=== PATIENT | female | born 1950 | race Caucasian/White ===

== ENCOUNTER 2016-06-22 17:06 | Inpatient (IN) | payer MEDICARE, OTHER ==
[~2016-06-22] VITALS: Ht 162.6 cm; Wt 54.0 kg
[2016-06-22 21:00] VITALS: BP 116/75; PULSE 65; RESP 16
--- NOTE | 2016-06-22 21:00 | NUR ---
Nurses Admission Note 65 [address] old involuntary female court ordered on a 14 day hold from [facility]. Patient has been followed by [facility],became medication non-compliant resulting in paranoid beliefs and behaviors. Patient believed that people came into her apartment moved and messed up things resulting in her moving into a hotel having the same outcome. Patient received a Zyprexa 5mg PO at 1600 while in [place]. Patient arrived here oriented, pleasant, denied auditory hallucinations or feelings of self harm. Patient stated she had one previous hospitalization in [place] in October. She reported one previous attempt at self harm by not eating for a long while and "got sick". Patient will be observed q 15min. checks for safety and support.
[2016-06-22] MEDS ORDERED: Magnesium Hydroxide 10 mL Oral Concentration PO PRN (21:30)
[2016-06-22] MEDS ORDERED: Alum-Mag Hydrox-Simeth 30 mL Suspension PO PRN (21:30)
[2016-06-22] MEDS ORDERED: Benzocaine-Menthol Lozenge 2/Pkg PO PRN (21:30)
[2016-06-22] MEDS ORDERED: Zolpidem 5 mg Tablet for FEMALE or >65YO PO PRN (21:30)
[2016-06-22] MEDS ORDERED: LORazepam 0.5 mg Tablet PO PRN (21:35)
--- NOTE | 2016-06-23 05:34 | NUR ---
nursing, nights, 11-7 s- i had a bad dream. no i don't want anything. how do i use the toilet ? can i walk in here ? do i need to leave the light on to brush my teeth ? thank you. o- has appeared to sleep after [id number]. seen running in degroot after nightmare. declined medication. slept [id number] and after 0345. assessed q 15 minutes. a- interrupted sleep. responded well to staff support and reassurance. appeared to be responding to internal stimuli. no apparent physical distress. p- monitor behavior/emotional state, quality, times and amount of sleep, use and effect of medication. ponce
--- NOTE | 2016-06-23 05:45 | NUR ---
Pt arrived at 2100. Pt isolated to room much and asked how she was allowed to do basic things like toilet. She wanted to stand on toilet and squat, staff mentioned this is not safe. During night Pt ran into degroot and started yelling and trying to get out door at end of degroot. She reports this was from a bad dream. Up and down all night and appears to be responding to internal stimulus. Pt observed every 15 minutes as ordered.
--- NOTE | 2016-06-23 11:44 | NUR ---
Nursing note Pt. denies depression, hallucinations, thoughts of self harm. She is experiencing some anxiety, but would not state a number. Does not want anxiety medication at this time. Pt. pleasant and cooperative. A little quiet and stoic, but responds to questions appropriately.
[2016-06-23 17:57] VITALS: BP 153/95; PULSE 95; RESP 16
[2016-06-23 17:58] VITALS: BP 115/71; PULSE 70; RESP 18
--- NOTE | 2016-06-23 21:26 | NUR ---
Observations 0900 to 2130 Pt affect and mood was confused, flat and quiet. Pt speech and eye contact was ok. Pt showered and attended to ADL's. Pt maintained behavior control throughout the shift. Pt attended meals in the D.R. and ate 100% of breakfast, 100% of lunch and 100% of dinner. Pt ate snack. Pt mostly keeps to herself. Pt wandered the hallway and/or rests in her room. Pt was observed every 15 minutes throughout the shift as ordered.
--- NOTE | 2016-06-23 23:30 | NUR ---
Nursing Note [id number] S. I don't feel anxious right now, I am here, I feel that is what I needed to do to try to get better. I just feel really depressed-I cant seem to make it better and I just put on my pleasant face all the time to hide it. O. Patient visible on unit, interacting with peers, watching TV. Patient rates anxiety 0/10, depression 6/10, denies current SI/HI or AH/VH. A. Patient appears depressed. Denied anxiety, but asked for Ativan twice this shift. P. Monitor for response to treatment/medications. Q 15 min checks for safety. Follow plan of care. Addendum: 06/23/16 at 233 by CHERISE PRETTY RN PRNs Ativan 0.5 mg po @ 1538 patient reports I am not really anxious-just really depressed. Ativan 0.5 mg po @ 3 Tums 100 mg for heartburn @ 1749. Ambien 5mg for sleep @ 2048 Addendum: 06/23/16 at 233 by CHERISE PRETTY RN disregard note-wrong pt.
--- NOTE | 2016-06-23 23:32 | NUR ---
Nursing Note [id number] S. I am no more anxious than usual. O. Patient unable to rate anxiety. Sitting on bed staring at wall. A. Isolative at times, responding to internal stimuli. P. Monitor for response to treatment/medications. Q 15 min checks for safety. Follow plan of care.
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
--- NOTE | 2016-06-24 05:36 | NUR ---
Nursing Note Noc Pt in bed upon arrival to unit. Pt has been up and down throughout shift. Pt appearance is disheveled and appears to be anxious. Pt came out to nursing window stating" am I suppose to be doing something?" Pt also c/t state "the street lights are brighter tonight". Q15 min safety checks per protocol with a total of 6 hr plus broken sleep. WCTM sleep, safety, behavior
--- NOTE | 2016-06-24 05:41 | NUR ---
Pt out on unit on and off, interacting with others and attended group. Pt reported that the voices were telling her that the bed was electrified and buzzing and if she did not tell us it was shaking and buzzing it would get worse. Up and down all night and appears to be responding to internal stimulus. Pt observed every 15 minutes as ordered.
[2016-06-24 11:41] VITALS: BP 113/75; PULSE 70; RESP 16
--- NOTE | 2016-06-24 12:45 | NUR ---
Nursing Day Shift- S- "I do a mix of styles for Yoga. Do you do yoga?" O- Pt. was awake for breakfast. she appeared polite and pleasant. marina manager reported poor sleep and possible delusional thinking. Pt. eat well at meals then exercised in her room. A- Pt. has not made or exhibited any paranoid or delusional statements today. She does appear internally preoccupied and bright. P- Cont. to monitor and observe. Cont. BHTP
[2016-06-24] MEDS ORDERED: Pantoprazole 40 mg ER24 Tablet ONE (14:19)
[2016-06-24 14:48] LABS: BASOPHILS % (AUTO) 0.9 % (0-3); EOSINOPHILS % (AUTO) 2.3 % (0-5); Mean Corpuscular Hemoglobin 30.4 pg (27.0-35.0); Mean Corpuscular Volume 87.8 fL (81-100); NEUTROPHILS % (AUTO) 61.9 % (40-74); Platelet Count 154 bil/L (150-400)
--- NOTE | 2016-06-24 18:49 | PCM.PNPSY ---
Subjective Date of Service Jun 24, 2016 Subjective The patient reported to staff that she felt that her bed had been electrified and had asked her to turn off the outside Street lamps in a variety of other unusual requests. She reported today that her fears and been alleviated as she was informed that we have decaf coffee and that she was no longer concerned that she would have too much caffeine. She reported that she felt better about returning to her condominium and although not certain was contemplating this. She reported no side effects. Sleep: 6.5+ hours Appetite: "Good, enjoying my food." Suicidal and homicidal ideation: Denies Auditory hallucinations/Visual hallucinations: Would not clarify further but did state that they were "better" Other Psychotic Symptoms: Still appears to have some thought blocking Anxiety: Moderate 4/10 Depression: 0/10 Current Medications Current Medications Olanzapine 5 mg HS PO Last administered on 06/23/16at 20:45; Admin Dose 5 MG; Start 06/23/16 at 21:00 Mental Status Exam Vital Signs Vital Signs Date Time Temp Pulse Resp B/P Pulse Ox O2 Delivery O2 Flow Rate FiO2 06/24/16 11:41 36.3 70 16 113/75 Appearance: Unkept Attitude: Pleasant, Cooperative (generally) Behavior: No unusual behavior Affect: Well Modulated/Appropriate (some inappropriate smiling) Mood: Anxious Thought Process/Associations: Blocking Speech Production: Paucity Speech Rate: Lags/Latency Speech Articulation: Normal Thought Content: Suspicious Danger to Self/Suicidal Ideati: None Danger to Others: None Hallucinations: Auditory (Endorses), Visual (Endorses) Consciousness: Alert Orientation: Person, Place, Date, Situation Memory: Grossly Intact Estimate Intellectual Function: Average Attention/Concentration & Cogn: Grossly Intact Insight: Limited Judgement: Limited Result Diagram: 06/24/16 1432 06/24/16 1432 Mental Health Plan The patient is a 65-year-old female with a long history of schizoaffective disorder, bipolar type, as well as probable posttraumatic stress disorder by history, who presents with decompensation and apparently has not been taking medications for some time. She evidenced acute paranoia both in her home and an additional residence and was subsequently detained and held on a 14-day involuntary treatment order. The patient is agreeable to restarting olanzapine at bedtime. The patient reports that she feels that the current dose of medication is helpful and she is not experiencing any side effects and so is willing to continue. She is expressing a decreased level of paranoia about returning home. [place] AXIS I: 1. Schizoaffective disorder, bipolar type. 2. Rule out post traumatic stress disorder. AXIS II: Deferred. AXIS III: See past medical history. AXIS IV: Moderate. AXIS V: Global Assessment of Functioning 25. Treatments 1. The patient is provided a safe and secure environment and at the present time is denying suicidal or homicidal ideation and does not require additional 1 -1 staffing. 2. The patient is encouraged to participate in group and milieu therapy. 3. The treatment team will meet with the patient on a daily basis to assess symptom, side effects, and response to treatment. 4. The patient will continue olanzapine 5 mg at bedtime and was provided information regarding tardive dyskinesia and metabolic syndrome. 5. The patient was provided with an eggcrate mattress to hopefully reduce further problems with sleep. 6. Anticipated length of stay approximately 14 days. Vinnie Stuart MD Jun 24, 2016 18:49
--- NOTE | 2016-06-24 18:51 | NUR ---
Glaucoma Specialist./ c.m. S.:"Since I slept last night I feel safe here. I think I'm safe... I feel good." O.: met with pt. and MD together. Pt. is ANDRES 14 MRO as GD. She had multiple hospitalizations in the past. Her last hospitalization was in October 2015 at [place]. She is connected with mental health services. She lives alone. She denied SI/HI, denied VH, denied depression today. She felt good after starting her meds again. She admitted having AH but she said that they were "better". She rated anxiety at 4/10. She was able to complete treatment plan and goals in the best of her ability. She was in and out of her room. She showed service writer advisor and MD a line on a floor near her door. She said that it was "a border line" for her safety in her room. "Nobody can cross this border without my permission." Later she allowed service writer advisor to come in the room and to cross that "border". A.: pt. is cooperative, pleasant, confused at times, paranoid and delusional at times. P.: monitor behavior, work on reality checks, provide safety in the unit; follow care plan.
--- NOTE | 2016-06-24 18:59 | NUR ---
Observations 0700 to 1900 Pt maintained behavioral control throughout the shift. Pt is flat, disoriented, paranoid, confused. Pt is continually unsure of rules on unit and asking for permission for everything. "Can I walk down this hallway." ; "Can I drink this water." ordered and pt received egg crate mattress. Pt attended community activities and set goal to take a shower. Pt self rated mood at 5/10. Pt enjoyed watching snow fall in afternoon. Pt ate 75% of meals and was observed every 15 minutes as ordered.
--- NOTE | 2016-06-24 22:30 | NUR ---
Nursing Notes [id number] S: "I talked to my sister today, she is going to contact my brothers to let them know where I am". "I had a nightmare-that happened before when I was on this medication and am in a trauma mode, I can have these disturbing dreams". O: Patient approaching staff appropriately, initiating conversations. Patient feeling she is feeling better after talking to her sister today. Denied current depression, hallucinations, SI/HI. Reports anxiety 3-10/02. A: Patient smiling, interacting, pleasant. P: Monitor for safety and response to treatment. Follow plan of care.
--- NOTE | 2016-06-25 06:57 | NUR ---
Sleep Adequate sleep with over 8 hours. No noted distress or awakening per protocol checks.
--- NOTE | 2016-06-25 13:28 | NUR ---
Nursing Day Shift- S- "I'm not sure what I'm allowed to do in my room. I'm not sure what the rules are here. Am I in [place]? Is it ok to have coffee now? O- Pt. was standing in the hallway with a lost expression at the start of the day shift. She stated the above to staff when assistance was offered. Pt. appeared confused, but not upset or anxious. She was oriented to place and situation, then offered breakfast. She continued to appear pleasantly confused and uncertain. A- Confusion, eating well and maintaining behavioral control. P- Cont. TP.
[2016-06-25 15:38] VITALS: BP 120/60; PULSE 64; RESP 16
--- NOTE | 2016-06-25 17:52 | PCM.PNPSY ---
Subjective Date of Service Jun 25, 2016 Subjective The patient is seen by the treatment team and reports, "I feel better now that you guys are here." The patient still appears to need reassurance from staff regarding location and expectations. She still is somewhat reticent to discuss her psychiatric symptoms. The patient reports that she would feel better about returning home if someone could check to see whether everything is okay. Although her brother lives locally, she believes he is currently at [facility]. Her sister lives in [place]. She reported no side effects. Sleep: 8 + hours Appetite: "Good" Suicidal and homicidal ideation: Denies Auditory hallucinations/Visual hallucinations: Reports that olanzapine is helping but will not say with what Other Psychotic Symptoms: Still appears to have some thought blocking Anxiety/Depression: Prefers not to say other than to say, "I feel better." Current Medications Current Medications Olanzapine 5 mg HS PO Last administered on 06/24/16at 20:15; Admin Dose 5 MG; Start 06/23/16 at 21:00 Mental Status Exam Vital Signs Vital Signs Date Time Temp Pulse Resp B/P Pulse Ox O2 Delivery O2 Flow Rate FiO2 06/25/16 15:38 36.9 64 16 120/60 Appearance: Unkept Attitude: Pleasant, Cooperative (generally) Behavior: No unusual behavior Affect: Well Modulated/Appropriate (some inappropriate smiling) Mood: Anxious Thought Process/Associations: Blocking Speech Production: Paucity Speech Rate: Lags/Latency Speech Articulation: Normal Thought Content: Suspicious Danger to Self/Suicidal Ideati: None Danger to Others: None Hallucinations: Auditory (Endorses but will not clarify), Visual (Endorses but will not clarify) Consciousness: Alert Orientation: Person, Place, Date, Situation Memory: Grossly Intact Estimate Intellectual Function: Average Attention/Concentration & Cogn: Grossly Intact Insight: Limited Judgement: Limited Result Diagram: 06/24/16 1432 06/24/16 1432 Mental Health Plan The patient is a 65-year-old female with a long history of schizoaffective disorder, bipolar type, as well as probable posttraumatic stress disorder by history, who presents with decompensation and apparently has not been taking medications for some time. She evidenced acute paranoia both in her home and an additional residence and was subsequently detained and held on a 14-day involuntary treatment order. The patient is agreeable to restarting olanzapine at bedtime. The patient reports that she feels that the current dose of medication is helpful and she is not experiencing any side effects and so is willing to continue. She is expressing a decreased level of paranoia about returning home. [place] AXIS I: 1. Schizoaffective disorder, bipolar type. 2. Rule out post traumatic stress disorder. AXIS II: Deferred. AXIS III: See past medical history. AXIS IV: Moderate. AXIS V: Global Assessment of Functioning 30. Medications Olanzapine 10 mg by mouth nightly Olanzapine 5 mg by mouth twice a day when necessary psychosis Lorazepam 0.5 mg every 6 hours when necessary anxiety or agitation Zolpidem 5 mg by mouth nightly when necessary insomnia Treatments 1. The patient is provided a safe and secure environment and at the present time is denying suicidal or homicidal ideation and does not require additional 1 -1 staffing. 2. The patient is encouraged to participate in group and milieu therapy. 3. The treatment team will meet with the patient on a daily basis to assess symptom, side effects, and response to treatment. 4. The patient will continue olanzapine 5 mg at bedtime and titrate as needed although the patient is reticent to take medications if experiencing side effects. 5. The patient was provided with an eggcrate mattress to hopefully reduce further problems with sleep. 6. Anticipated length of stay approximately 14 days. Vinnie Stuart MD Jun 25, 2016 17:52
--- NOTE | 2016-06-25 18:39 | NUR ---
[facility] Day Shift Pt maintained behavioral control throughout the shift. Pt affect appears mostly flat, brighter when engaged with staff or peers. Pt spends most of the shift resting in her room, interacting with staff and peers in the dining room, and participating in unit activities. Pt is pleasant with staff and peers when active on the unit. Pt appears confused and hesitant throughout the shift, often asking staff for direction/guidance during menial tasks (this appears to alleviate as the shift progresses). Pt attended community meeting in the AM and all group activities throughout the shift. Pt attended all meals and ate approx 90-100% of all meals.
--- NOTE | 2016-06-25 22:33 | NUR ---
NURSING NOTE [id number] Orientation= x2 (person, time-- did not know place) Mood= "good" *smiles* Affect= nervous, appearing preoccupied at times Behavior= frequently pacing the unit, asked this magazine writer "can I show you my room?" and then pointed out all of the objects in her room, asked this magazine writer if this magazine writer would watch her make her bed and tell her "if it's ok?". She went on to ask many times this evening if certain things on the unit were "ok" and appeared fixated on "the rules", despite given frequent assurance that she is doing well and would be redirected if any rules were broken. Thought processes= paranoid, scattered, disorganized. A few times she appeared to be responding to internal stimuli, though pt denied AH/VH. Also denies depression or anxiety.
--- NOTE | 2016-06-26 05:03 | NUR ---
Pt spent the evening between the dining room/TV area and her room. Pt is guarded and needs constant reassurance. Pt attended wrap-up group, did not have a goal but stated that the day was good. Pt rated mood 5/10. Pt noted asleep at 2245, woke at 0015 with a nightmare stating, "I shouldn't tell you this but my best friend is going to if I tell you about her dying in my dreams unless I can remember which nickname she likes best and I know but I just can't remember and I'm scared." Pt appeared somewhat distressed but was easily calmed with walking, a drink of water, and some company for a short time. Q15 safety checks maintained as directed.
--- NOTE | 2016-06-26 06:07 | NUR ---
Nursing Noc Pt noted to be first asleep at 2245. Pt maintaining behavior control in Milieu. Participated in evening wrap up, no goal set at this time. Pt reports she had a good day. Continuing to monitor sleep times, mood, behavior, emotional state and medications by q15 minute safety checks. CP
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
--- NOTE | 2016-06-26 16:37 | NUR ---
[employer]./ c.m. S.:"I'm good... I feel confused sometimes... How do you know that I did yoga? Yoga is a yazdanism practice but stretching is an exercise. Now I don't even know how to call it..." O.: met with pt. to discuss her progress. She slept "pretty good" last night. She denied SI/HI. She denied AH/VH. She admitted being confused at times. She wanted to take a shower but she didn't know how to do that. "How will I take a shower? Just go there and that's it? Would it be ok if I wet my hair?" Pt. was talking about multiple topics at once. She couldn't follow up a conversation. She had a hard time following a direction. She became very happy to know that her aunt Cristy Murray will come on Sunday next week. She was in and out of her room wondering around. A.: pt. is cooperative, quiet, confused, scattered and looks internally preoccupied. P.: monitor behavior, monitor meds intake, follow care plan.
--- NOTE | 2016-06-26 20:27 | NUR ---
Obs Dayshift Pt spent a lot of time exercising, stretching, or walking the unit today. Pt participates, engages well w/ others, slightly latent w/ responses. Pt makes some random statements, quiet, soft spoken. Pt stated mood to be 5/10, ok eye contact, smiles and is polite w/ peers. Good ADL's, Good meals 75-100%
--- NOTE | 2016-06-26 20:57 | PROG NOTE ---
[address] [address] PROGRESS NOTE PATIENT: MARTHA BRAVO : 1950 MR#: [id number] ADMIT: 06/22/2016 JOB ID: [id number] DATE: 06/26/2016 CHIEF COMPLAINT: "I think I am doing better. I have got some anxiety but generally I am happy." This is per patient report. HISTORY OF PRESENT ILLNESS: As stated above, the patient identified that she does feel that she is making some progress. She indicated that she feels that she is mildly anxious about the upcoming plan of discharge, but states that she knows that she will be able to figure it out. She identified that she had a good talk with a family practice resident earlier today and stated that she feels that she is getting much better sleep with her current medication interventions. MENTAL STATUS EXAM: She was cooperative, polite. She maintained good eye contact throughout. She was casually dressed in scrubs. She has not taken a shower as of yet. Her speech was of normal tone, frequency, and volume. Her mood was mildly anxious. Her affect was congruent. Her thought process shows no evidence of current loose or disconnected thinking. No evidence of random flight of ideas. She was alert, oriented to time and place. Her attention and concentration were intact. Insight and judgment are fair. PHYSICAL EXAM: Vital signs are current. Temperature is 36.9, pulse 64, respirations 16, BP 120/60. MEDICATION REVIEW: Includes: 1. Zyprexa 5 mg q.h.s. as well as 5 mg b.i.d. p.r.n. 2. Ativan 0.5 mg q.6 p.r.n. ASSESSMENT: Paloma I 1. Schizoaffective disorder, bipolar variant. 2. Rule out posttraumatic stress disorder, chronic. Paloma II Deferred. Paloma III None. Paloma IV Stressors are moderate. Paloma V Global assessment of functioning current 30. PLAN: 1. Recommendations for continuation of medications as noted. 2. Recommendations for probable discharge later this week for return back to her home community in [place]. 3. Continuation of 14 day order for now.
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
--- NOTE | 2016-06-27 02:07 | NUR ---
Observations 1900 to 0700 Pt affect remains the same. Pt is confused and disoriented at times. Pt asks permission to to almost anything on the unit. Pt was in and out of her room for most of the night. pt walked up and down the hallway. Pt first appeared asleep at 22:45 and was observed every 15 minutes through the night as directed.
--- NOTE | 2016-06-27 06:12 | NUR ---
Nursing notes: production shift supervisor Patient appears to be sleeping on safety checks during the night. Patient noted to be awake briefly from 02:30to 03:00, denies complaints. Continues to request reassurance "Is it OK if I get a cup of water here in the Dining room?"
[2016-06-27 10:00] VITALS: BP 129/85; PULSE 68; RESP 15
--- NOTE | 2016-06-27 14:02 | NUR ---
Nursing Note [id number] Behavior, Rash S/O: Pt has good appetite. Pt responds appropriately upon interaction, but is unable to process simple requests such as finding the tag on her scrub pants for the size. Pt unable to comb hair & needed assistance to get tangles out. She has a rash on her left forearm & right forearm is pink. Pt reports rash is not itchy. She denies having a rash on other parts of her body. She states, "I've had psoriasis." Pleasant with staff & peers. A: Pt is unable to care for self. P: Provide supportive environment. Monitor medications & effectiveness.
--- NOTE | 2016-06-27 15:32 | PROG NOTE ---
[address] [address] PROGRESS NOTE PATIENT: MARTHA BRAVO : 1950 MR#: [id number] ADMIT: 06/22/2016 JOB ID: [id number] DATE: 06/27/2016 CHIEF COMPLAINT: "I think I am having a very good day." This is per patient report. HISTORY OF PRESENT ILLNESS: As stated above, the patient openly identified that she is having a very positive day. She indicated that she had accomplished many goals in the morning, participating in some group activities and also taking a shower. She indicated that she feels that her thoughts are fairly stable. She identified that she had a long-term history of pursuing a clinical psychology degree at the [employer] at one time and also indicated that she was disappointed to find out that she could not actually pursue a formalized certificate. OBJECTIVE: On mental status exam, she was bright, cooperative, interactive. She maintained good eye contact throughout. Her speech was of normal tone, frequency, and volume. Her mood was neutral. Her affect was congruent. Her thought process showed no evidence of racing thoughts, flight of ideas, loose or disconnected thinking. Thought content, no evidence of current suicidal or homicidal ideation. No evidence of active hallucinations or delusions. She was alert, oriented to person, place, time, situation. Attention and concentration intact. Memory intact in the short term, long-term, recent. Insight and judgment are fair. PHYSICAL EXAMINATION: Vital signs are current. Temperature is 37, pulse 68, respirations 16, BP 129/85. MEDICATION REVIEW: Includes Zyprexa 5 mg q.h.s., 5 mg b.i.d. p.r.n. ASSESSMENT: AXIS I 1. Schizoaffective disorder, depressed type. 2. Posttraumatic stress disorder, chronic. AXIS II Deferred. AXIS III None. AXIS IV Stressors were noted for chronic mental health issues. AXIS V Global Assessment of Functioning current 40. PLAN: 1. Recommendation is for continuation of above medications as noted. 2. Continuation of court order as noted.
--- NOTE | 2016-06-27 16:03 | NUR ---
[employer] Lit[employer]./ c.m. S.:"What will I do next?" O.: pt. was in and out of her room wondering around. She denied SI/HI. She wanted to know "the rules" and "what to do next". Cane Burner had a long phone conversation with pt.'s aunt Cristy who is planning to come here next Sunday. Pt.'s aunt was very concerned about pt.'s "recent confusion" and her constant questions about what to do next. She said that this was something new in pt.'s behavior. She said that pt. is not close to her baseline at all. A.: pt. is cooperative, pleasant, confused, look internally preoccupied. P.: monitor behavior, follow care plan.
--- NOTE | 2016-06-27 20:29 | NUR ---
Obs Dayshift Pt is spending most of the day in the milieu talking, walking, engaging w/ peers. Pt is confused and states that she is confused needing things explained slowly, clearly and repeated. Pt requested new scrubs and socks but couldn't understand how to find out what size she was wearing and wasn't able to process the explanation on how to find the tag to get the size. Pt is polite, appropriate and calm on the unit. Good ADL's, Good meals
--- NOTE | 2016-06-27 21:12 | NUR ---
Nursing Note Arelis- Pt up on unit entire shift, socializing with peers and staff. Pt is cooperative with bright affect. Pt is slow to respond when questions asked regarding anxiety,depression and SI. At first PT claimed slight anxiety r/t "I don't know whats going on, and I don't know when I get to go home". Pt then back tracked stating" No I don't have any write that on your paper". Pt appeared to have appropriate answers and clear thought upon interaction. Compliant with HS meds, no PRN's given. Q15 min safety checks done per protocol, [facility] sleep, behavior, safety
--- NOTE | 2016-06-28 01:31 | NUR ---
Observations 1900 to 0700 Pt affect remains the same. Pt is confused and disoriented at times. Pt was in and out of her room for most of the night. pt walked up and down the hallway. Pt first appeared asleep at 21:30 and was observed every 15 minutes through the night as directed.
--- NOTE | 2016-06-28 05:57 | NUR ---
Sleep Pt slept from [id number]. She awoke and walked the hallway for over an hour before falling back asleep at 0515. Total sleep 7+ hours.
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
--- NOTE | 2016-06-28 13:55 | NUR ---
Nursing Day Shift- S- "Can you slow down or say that again, because I am really confused." O- Pt. had slept 6.75 hours last night per awake overnight counselor report. She appeared at breakfast with a soft smile, and a slightly lost expression. Pt. is polite and cooperative. She endorses feeling slowed and confused, but denies auditory or visual hallucinations. A- Pt. has appeared more at ease on the unit since her admission. Continued internal preoccupation. P- Cont. BHTP.
--- NOTE | 2016-06-28 14:06 | PROG NOTE ---
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 She openly identified that she feels that her thoughts are much more cohesive. She indicated that she has not seen any significant side effects from the current medication administration. She reportedly has shared with the family practice resident that she is anxious about leaving the hospital and believes that one of her neighbors potentially has been intruding into her apartment. OBJECTIVE: On mental status examination, she was bright, cooperative, interactive. She denied any evidence of acute distress. Her speech was of normal tone, frequency and volume. Her mood was neutral. Her affect was anxious to some degree. Her thought process shows no evidence of racing thoughts, flight of ideas, loose association, disconnection of thought. Thought content: She denied any evidence of current suicidal or homicidal ideation. She was alert, oriented to person, place, time, situation. Her attention and concentration intact. Memory intact in the short term, jail, recent. Insight and judgment are fair. PHYSICAL EXAMINATION: Vital signs of current. Temperature is 37, pulse 68, respirations 15, BP 128/85. MEDICATION REVIEW: Includes Zyprexa 5 mg at h.s. with additional 5 mg b.i.d. p.r.n. ASSESSMENT: AXIS I 1. Schizoaffective disorder depressed type. 2. Posttraumatic stress disorder, chronic. AXIS II Deferred. AXIS III None. AXIS IV Stressors were noted for chronic mental health issues. AXIS V Global assessment of functioning of current 40. PLANS: 1. Recommendations for continuation of all medications. 2. Continuation of MR 14 with probable discharge on July 05.
--- NOTE | 2016-06-28 18:59 | NUR ---
Case Management/Counselor: S: "I get confused easily." O: Met with patient. Patient slept 6.75 hours last night per staff. Patient denies S/I and H/I. She also denies auditory and visual hallucinations. She did not rate depression and anxiety. A: Patient is cooperative, confused at times, poor insight, poor judgment. P: Follow care plan, coordinate out-patient providers.
--- NOTE | 2016-06-28 21:46 | NUR ---
nursing note 3-11pm S)"this is just me I walk a lot" O) pt walking halls mostly with peers, pleasant on approach, out in milieu most of shift, dressed in own clothes looks unkept, took medications with out problems A) cooperative, took medications, social P) monitor medication effectiveness and encourage participation in treatment
--- NOTE | 2016-06-29 05:08 | NUR ---
noc shift 11-7 Pt slept 8 hrs tonight and had an uneventful night.
--- NOTE | 2016-06-29 12:14 | NUR ---
Nursing Day Shift- S- "I feel good today. Everything is better." O- Pt. has slept 8 plus hours per report. She was at breakfast and greeted staff with a smile and a polite greeting. She reported the above, but was unable to verbalize what was good. She agreed with staff's questions that she felt physically better, less confused and her mood was improved. Pt. requested a shower and completed the task. She eat well at meals. A- Pt. reports feeling better. Responses continue to be brief with latency. Pt. appears to be internally preoccupied. P- Cont. TP
--- NOTE | 2016-06-29 12:58 | PROG NOTE ---
[address] [address] PROGRESS NOTE PATIENT: MARTHA BRAVO : 1950 MR#: [id number] ADMIT: 06/22/2016 JOB ID: [id number] DATE: 06/29/2016 CHIEF COMPLAINT: "I am having a good day. I slept very well." This per patient report. HISTORY OF PRESENT ILLNESS: As stated above, the patient openly identified significant improvement with her mood and thought process. She was very pleasant on interaction. 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 She indicated that she is looking forward to discharge the middle of next week and stated that she will remain on her medications as noted. OBJECTIVE: On mental status exam, the patient was casually dressed. She maintained good eye contact throughout. Her speech was of normal tone, frequency, and volume. Her mood was neutral. Her affect was congruent. Her thought process shows no evidence of racing thoughts, flight of ideas, loose or disconnected thinking. Her thought content: She denied any evidence of current suicidal, homicidal ideation. No evidence of active hallucinations, delusions. She was alert, oriented to time, place, situation. Her attention and concentration intact. Memory intact in the short term, senior living, recent. Insight and judgment were fair. PHYSICAL EXAMINATION: Vital signs are current: Temperature is 37, pulse 68, respirations 15, BP 129/85. MEDICATION REVIEW: Included Zyprexa 5 mg q.h.s. ASSESSMENT: [place] I: 1. Schizoaffective disorder, depressed type. 2. Post-traumatic stress disorder, chronic. [place] II: Deferred. [place] III: None. [place] IV: Stressors were noted for chronic mental health issues. [place] V: Global Assessment of Functioning of current 40. PLAN: 1. Recommendations for continuation of all medications noted. 2. Planned discharge next Sunday for appropriate aftercare followup.
[2016-06-29 13:46] VITALS: BP 137/64; PULSE 65; RESP 16
--- NOTE | 2016-06-29 17:41 | NUR ---
Case Management/Counselor: S: "Can we stand by the window and talk?" O: Met with patient. Patient slept 8 hours last night per staff. Patient denies S/I and H/I. She also denies auditory and visual hallucinations. She did not rate depression and anxiety. This pattern chart writer spoke with patient's sister from [place]. Patient's sister will have a family meeting with the psychiatrist and Scale Expert, 07/04/16 at 11:00am. A: Patient is cooperative, flat affect, fair insight, fair judgment. P: Follow care plan, coordinate out-patient providers.
--- NOTE | 2016-06-29 18:34 | NUR ---
Observations 1400 to 2000 Pt affect was flat and confused at times. Pt is ambivalent when it comes to making small decisions like going out on patio, charging her phone, doing laundry. Pt speech and eye contact was ok. Pt was out in common area most of the shift. Pt was minimally social with staff and peers when approached. Pt sat quietly in dining area and/or wandered the hallway when out of her room. Pt maintained behavior throughout the shift. Pt attended meals in the D.R. and ate 100% of dinner. Pt was polite pleasant and cooperative. Pt was observed every 15 minutes throughout the shift as ordered. Pt is currently talking with CM in dining area.
--- NOTE | 2016-06-29 21:41 | NUR ---
nursing note 3-11pm O)pt out in milieu most of shift, cooperative and social, pleasant on approach, walked halls and [facility] to [facility], came to med room request night time medication, ate dinner A) cooperative, took medications, no complaints P) monitor medication effectiveness
--- NOTE | 2016-06-30 05:45 | NUR ---
Noc shift 11-7am Pt slept 8 hrs, woke up around 0200 requesting ativan, educated pt about dr's new scheduled order in AM. Pt decided she wanted Trazadone instead. Trazadone was effective and pt was able to go back to sleep.
--- NOTE | 2016-06-30 05:48 | NUR ---
Pt out on unit listening to music but did ask if she was allowed to do basic things like flush the toilet and walk. Asleep at 2115. Pt observed every 15 minutes as ordered.
[2016-06-30 08:07] VITALS: BP 122/75; PULSE 63; RESP 16
--- NOTE | 2016-06-30 12:05 | NUR ---
Nursing Day Shift- S- "I'm doing great. How are you doing today A....?" O- Pt. had slept 8 plus hours per shift report. She appeared at breakfast with a smile and a polite greeting to staff. Pt. eat well a breakfast then requested a shower. She continues to have a mild speech delay and apprehensive, brief speech. Pt. appeared to enjoy time on the patio area. A- Pt. no longer voices paranoid thoughts. She continues with internal preoccupation, and delayed responses. P- Cont. BHTP.
--- NOTE | 2016-06-30 12:23 | NUR ---
Observations 0700 to 1300 Pt affect and mood remained the same as previous days. Pt speech and eye contact was ok. Pt was out in common area most of the shift. Pt was minimally social with staff and peers when approached. Pt sat quietly in dining area and/or wandered the hallway. Pt maintained behavior throughout the shift. Pt attended meals in the D.R. and ate 100% of breakfast and lunch. Pt was polite pleasant and cooperative. Pt went out on patio to get some fresh air. Pt was observed every 15 minutes throughout the shift as ordered.
--- NOTE | 2016-06-30 13:20 | PCM.PNPSY ---
Subjective Date of Service Jun 30, 2016 Subjective Patient is feeling well today, interested in the possibility of returning to [place] where she is from, where her sister/POA lives, and where she still has two friends. She is not thinking today about the fear she had in the condo. Sleep: very good Appetite: very good Suicidal and homicidal ideation: denies Auditory hallucinations: denies Visual hallucinations: denies Other Psychotic Symptoms: denies Anxiety: 0/10 Depression: 0/10 Current Medications Olanzapine 5 mg by mouth nightly (taken last night, none of the meds below have been needed) Olanzapine 5 mg by mouth twice a day when necessary psychosis Lorazepam 0.5 mg every 6 hours when necessary anxiety or agitation Zolpidem 5 mg by mouth nightly when necessary insomnia Mental Status Exam Vital Signs Vital Signs Date Time Temp Pulse Resp B/P Pulse Ox O2 Delivery O2 Flow Rate FiO2 06/30/16 08:07 36.3 63 16 122/75 Appearance: Neat/well groomed Attitude: Pleasant, Cooperative (generally) Behavior: No unusual behavior Affect: Well Modulated/Appropriate Mood: Euthymic Thought Process/Associations: Blocking Speech Production: Normal Speech Rate: Lags/Latency Speech Articulation: Normal Thought Content: Appropriate, Perseveration Danger to Self/Suicidal Ideati: None Danger to Others: None Hallucinations: Auditory (denies), Visual (denies) Consciousness: Alert Orientation: Person, Place, Date, Situation Memory: Grossly Intact Estimate Intellectual Function: Average Attention/Concentration & Cogn: Grossly Intact Insight: Limited Judgement: Limited Result Diagram: 06/24/16 1432 06/24/16 1432 Mental Health Plan The patient is a 65-year-old female with a long history of schizoaffective disorder, bipolar type, as well as probable posttraumatic stress disorder by history, who presents with decompensation and apparently has not been taking medications for some time. She evidenced acute paranoia both in her home and an additional residence and was subsequently detained and held on a 14-day involuntary treatment order. The patient has restarted olanzapine at bedtime. The patient reports that she feels that the current dose of medication is helpful and she is not experiencing any side effects and is willing to continue. She is expressing a decreased level of paranoia about returning home , but is clearly not eager to leave this safe situation in the hospital. She is clearly interested in the idea of returning to [place] where her sister/ POA lives. [place] AXIS I: 1. Schizoaffective disorder, bipolar type. 2. Rule out post traumatic stress disorder. AXIS II: Deferred. AXIS III: See past medical history. AXIS IV: Moderate. AXIS V: Global Assessment of Functioning 30. Medications Olanzapine 5 mg by mouth nightly Olanzapine 5 mg by mouth twice a day when necessary psychosis Lorazepam 0.5 mg every 6 hours when necessary anxiety or agitation Zolpidem 5 mg by mouth nightly when necessary insomnia Treatments 1. The patient is provided a safe and secure environment and at the present time is denying suicidal or homicidal ideation and does not require additional 1 -1 staffing. 2. The patient is encouraged to participate in group and milieu therapy. 3. The treatment team will meet with the patient on a daily basis to assess symptom, side effects, and response to treatment. 4. The patient will continue olanzapine 5 mg at bedtime and titrate as needed although the patient is reticent to take medications if experiencing side effects. 5. The patient was provided with an eggcrate mattress to hopefully reduce further problems with sleep. 6. Anticipated length of stay approximately 14 days. Family meeting with sister who is her POA is planned for 07/04/16. halfway planning to be discussed, including the possibility of returning [place]. Cyrus Almeida DO Jun 30, 2016 13:20
--- NOTE | 2016-06-30 13:34 | PROG NOTE ---
[address] [address] PROGRESS NOTE PATIENT: MARTHA BRAVO : 1950 MR#: [id number] ADMIT: 06/22/2016 JOB ID: [id number] DATE: 06/30/2016 CHIEF COMPLAINT: "I think it would be a good idea." This per patient report in reference to a proposal from myself and the community case manager of consideration returns to back to the [facility]. Evidently the patient reportedly identified that her sister will be flying in to meet with myself and the community case manager on Sunday. The patient indicated that she has lived in [place] for the past 20 years and would be open to return to the [facility] for further assistance. She identified that her sister is her POA as well as her brother and that she indicated that she feels that she cannot have a successful return to her condominium in [place]. She did identify that she feels at a loss and stated that despite interventions of her previous counseling, outpatient medication management and additional assistance at a drop-in center in [place], she feels fearful of returning back to the [facility] for fear that individuals are breaking into the home. OBJECTIVE: On mental examination, she was bright, cooperative, interactive. She denied any evidence of acute distress. Her speech was of normal tone, frequency and volume. Her mood was neutral. Her affect was congruent. Her thought process shows some evidence of loose and disorganized thinking. She is redirectable, however. There was no evidence of racing thoughts, flight of ideas. Thought content: She denied any evidence of current suicidal or homicidal ideation. There was no evidence of paranoia. She denied any evidence of hallucinations. She does continue to have a fixed delusion and perception that the individuals are breaking into her home in [place]. She was alert, oriented to time and place. Her attention and concentration intact. 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 Insight and judgment are fair. PHYSICAL EXAMINATION: Vital signs are current. Temperature was 36.3, pulse 63, respirations 16, BP 122/75. MEDICATION REVIEW: Includes: 1. Zyprexa 5 mg q.h.s. 2. Ativan 0.5 mg q.6 p.r.n. for anxiety. ASSESSMENT: AXIS I 1. Schizoaffective disorder, depressed type. 2. Posttraumatic stress disorder, chronic. AXIS II Deferred. AXIS III None. AXIS IV Stressors noted for chronic mental health issues. AXIS V Global assessment of functioning of current 40. PLAN: 1. Recommendations for meeting with the sibling sister on Sunday with myself and the community case manager for discussion of return back to the [facility] for further assistance and support. 2. Recommendations for continuation of all medications noted.
--- NOTE | 2016-06-30 17:33 | NUR ---
Case Management/Counselor: S: "I trust what the doctor and the staff suggests." O: Met with patient and psychiatrist. Patient slept 8 hours last night per staff. Patient denies S/I and H/I. She also denies auditory and visual hallucinations. She did not rate depression and anxiety. Patient agreed that it would be best to move back to [place] because she has family support of her sister and there are more mental health resources in [place]. Psychiatrist will discuss the possibility of patient needing to move back to [place], with sister, during the family meeting Sunday, at 11:00am. A: Patient is cooperative, brighter affect, hopeful, fair insight, fair judgment. P: Follow care plan, coordinate with out-patient providers, patient's sister, and transportation.
--- NOTE | 2016-06-30 18:25 | NUR ---
Nurses Note Evening Patient has been in the group room and on the patio stretching and exercising. 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 She appeared somewhat preoccupied and has not had interactions with peers. After dinner,patient retired to her room,napped on and off. Will encourage continued conversations,expression of thoughts and concerns,continued medication compliance. Addendum: 06/30/16 at 1831 by OLGA VICTORIA RN Amended: Links added.
--- NOTE | 2016-07-01 04:54 | NUR ---
noc 11-7 Pt slept 8 hrs, slept well through the night, she had an uneventful night.
--- NOTE | 2016-07-01 06:38 | NUR ---
Pt out on unit listening to music and interacting with others. Asleep at 2115. Pt observed every 15 minutes as ordered.
--- NOTE | 2016-07-01 11:16 | NUR ---
Nursing Dayshift: S: "I call it stretching. Yoga is Quaker and I'm not so I just call it stretching." O: Patient stretching on her mat in her room this AM. 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 Good appetite at meals. Good eye contact. Attending to laundry this AM. Some ambulating of degroot "for exercise". Attending group activities. Denies anxiety, depression, harmful thoughts, and hallucinations. A: Med compliant. Brighter affect. More animated. P: CPOC. Monitor mood and behavior. Addendum: 07/01/16 at 1125 by SCAR MCKENZIE RN Amended: Links added.
[2016-07-01 13:37] VITALS: BP 109/77; PULSE 67; RESP 16
--- NOTE | 2016-07-01 13:48 | PROG NOTE ---
[address] [address] PROGRESS NOTE PATIENT: MARTHA BRAVO : 1950 MR#: [id number] ADMIT: 06/22/2016 JOB ID: [id number] DATE: 07/01/2016 CHIEF COMPLAINT: "I spoke with my sister and she indicated that it may take some time for me to get back to [place]. She was hoping that I would actually look at options in [place]." HISTORY OF PRESENT ILLNESS: As stated above, the patient did identify that she spoke with her sister who indicated that there may be additional information of possible options in [place]. She indicated that she is unsure of the final decision and that we will follow up conversations on Sunday. OBJECTIVE: On mental status examination, she was cooperative, polite. She maintained good eye contact throughout. She discussed at length using various coping skills and indicated that she is fearful of a return to [place] indicating that she would prefer to advance into a new realm of life going back to [place]. She was very pleasant and appropriate on interaction. OBJECTIVE: On mental status examination, she was bright, cooperative, interactive. She denies any evidence of acute distress. Her speech was of normal tone, frequency and volume. Her mood was neutral. Affect was congruent. Her thought process shows no evidence of racing thoughts, flight of ideas, loose or disconnected thinking. Thought content: She was denying any evidence of current suicidal or homicidal ideation. No evidence of paranoia. She was alert, oriented to time and place. Attention and concentration intact. Insight and judgment are fair. PHYSICAL EXAMINATION: All vital signs are current. Temperature is 36.3, pulse 62, respirations 16, BP 122/75. MEDICATION REVIEW: Includes Zyprexa 5 mg q.h.s. ASSESSMENT: AXIS I Schizoaffective disorder, depressed type by history. AXIS II Deferred. AXIS III None. AXIS IV Stressors are noted for chronic mental health issues. AXIS V Global assessment of functioning of current 35. PLANS: 1. Recommendations for continuation of all medications noted. 2. Recommend follow up meeting with the family unit on Sunday.
--- NOTE | 2016-07-01 15:08 | NUR ---
Helen. kassandra Mary.:"I'm feeling good. For some reason I feel very busy today." O.: met with pt. in her room. She was in bed resting/stretching. She slept "very good" last night and she felt rested. She denied SI/HI, denied AH/VH, denied depression or anxiety. She was very busy today with different activities. She talked about her options of outpatient care and her future mtg with her brother and sister. "We are very close and I'm looking forward to the meeting with them." She said that "medications might be doing something because I feel good and my thinking is natural. I don't think about it." She talked with her sister over the phone today also. She was in and out of her room. She came to the Dining room for meals. A.: pt. is cooperative, pleasant, has a bright affect, reality oriented. P.: monitor behavior, work on Safety plan, encourage pt. to stay more in a public area; follow care plan.
--- NOTE | 2016-07-01 18:01 | NUR ---
Observations 0700 to 1900 Pt maintained behavioral control throughout the shift. Pt friendly, careful, childlike, anxious. Pt continues to be extremely self-effacing. "You can interrupt me anytime you want, ever." Pt attended community activities throughout the day, and seems to enjoy interacting with peers and with staff. Pt set goal at community meeting to do stretches in room and be patient with the stretches. Pt spent much of day isolating in room, laying on bed and resting. Pt made many short visits to DR to talk to peers. Pt ate 75-100% of meals and was observed every 15 minutes as ordered.
--- NOTE | 2016-07-02 05:55 | NUR ---
Pt out on unit watching TV and interacting with others. Asleep at 2145. Pt observed every 15 minutes as ordered.
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
[2016-07-02 08:25] VITALS: BP 155/77; PULSE 63; RESP 17
--- NOTE | 2016-07-02 11:38 | NUR ---
Nursing Dayshift: S: "I'll be selling my condo in [place]." O: Patient discussing her proposed move to [place]. Has been ambulating the degroot much of the AM. Stretching in her room this AM at start of shift. Pleasant on approach. Interactive with staff and peers. Good appetite. Good eye contact. Denies anxiety, depression, harmful thoughts, and hallucinations. A: Pleasant. Cooperative. Alert. P: CPOC. Monitor mood and behavior. Addendum: 07/02/16 at 1144 by SCAR MCKENZIE RN Amended: Links added.
--- NOTE | 2016-07-02 14:17 | PROG NOTE ---
[address] [address] PROGRESS NOTE PATIENT: MARTHA BRAVO : 1950 MR#: [id number] ADMIT: 06/22/2016 JOB ID: [id number] DATE: 07/02/2016 CHIEF CONCERN: "I am having a great day." This per patient report. HISTORY OF PRESENT ILLNESS: As stated above, the patient identified a positive morning. She indicated that she awoke at 4:00 but was able to get back to sleep. She has been walking the halls and utilizing other techniques and discussion with staff. OBJECTIVE: On mental status exam, she was bright, cooperative, interactive. She maintained good eye contact throughout. She denies any evidence of acute distress. Her speech is of normal tone, frequency, and volume. Her mood was neutral. Her affect was congruent. Her thought process shows no evidence of racing thoughts, flight of ideas, loose or disconnected thinking. Thought content: She denied any evidence of current suicidal, homicidal ideation. No evidence of active hallucinations, delusions. She was alert. Oriented to time, place, situation. Attention and concentration intact. Memory intact in the short term, intermodal customer service, recent. Insight and judgment are fair. PHYSICAL EXAMINATION: Vital signs are current: Temperature is 36.2, pulse 60, respirations 17, BP 155/77. MEDICATION REVIEW: Includes Zyprexa 5 mg q.h.s. ASSESSMENT: [place] I: Schizophrenia, paranoid type. [place] II: Deferred. [place] III: None. [place] IV: Stressors are noted for chronic mental health issues. [place] V: Global Assessment of Functioning of current 40. PLAN: 1. Recommendations for probable discharge on Sunday. 2. Continuation of all medications noted.
--- NOTE | 2016-07-02 15:55 | NUR ---
Joinery Machinist./ c.m. S.:"I'm in a good spirit." O.: met with pt. to discuss her progress. She slept "very good" last night. She denied SI/HI, denied AH/VH, denied depression or anxiety. She continued thinking that there was "something wrong or dangerous" with her condo in [place]. She talked about her siblings and her family. She went outside for a fresh air today in the morning and she enjoyed it a lot. She was stretching in her room and walking in a degroot. She is waiting for her siblings to visit her tomorrow in the evening. She is hoping to be discharged on Sunday or Sunday. A.: pt. is cooperative, pleasant, has a bright affect, social with staff and selected peers. P.: monitor behavior, work on Safety plan and follow up; follow care plan
--- NOTE | 2016-07-02 20:04 | NUR ---
Observations 0900 to 2130 Pt affect and mood remained the same as previous days. Pt appears lost and confused at times. Pt attended community and set a daily goal. Pt speech and eye contact was good. Pt was out in common area most of the shift. Pt was minimally social with staff and peers when approached. Pt sat quietly in dining area and/or wandered the hallway. Pt maintained behavior throughout the shift. Pt attended meals in the D.R. and ate 90% of breakfast and 100% of lunch and dinner. Pt was polite pleasant and cooperative. Pt went out on patio to get some fresh air. Pt was observed every 15 minutes throughout the shift as ordered.
--- NOTE | 2016-07-03 05:32 | NUR ---
Observations from [id number] Pts mood and affect were mostly unchanged. Pt was walking around for a good portion of the evening with other pt and expressed that walking helps her stay calm and clear her head. Pt attended wrap up group and said she met her goal of staying in the present. She said her day was ok and rated her mood 02/01. Pt appeared asleep at 2200 and woke up at 2345 and walked around the unit for about 15 minutes but was back in bed at midnight and has appeared to sleep soundly since then. Pt has been monitored every 15 minutes as directed.
--- NOTE | 2016-07-03 06:27 | NUR ---
Nursing Noc Pt continues pleasant and cooperative on the unit. Took medication without difficulty. Adequate sleep through the night with no noted distress or awakening per protocol checks. Adequate sleep through the night with over 7.5 hours.
[2016-07-03 08:40] VITALS: BP 109/74; PULSE 95; RESP 15
--- NOTE | 2016-07-03 15:14 | NUR ---
Nursing Note [id number] Behavior S/O: Pt out of room for meals & for a few minutes at other times. Pt in room doing yoga on mat several times during the day. Pleasant & cooperative with staff & peers. Pt ate 75% of breakfast & lunch. Conversation tracking tangential with normal rate & rhythm. A: Pt improving. P: Provide supportive environment. Monitor medications & effects. Family meeting tomorrow.
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
--- NOTE | 2016-07-03 18:29 | NUR ---
Observations [id number] Pt was awake and walking halls shortly after beginning of shift. Pt appears to be thinking clearer and has clearer communication. She enjoys exercise, stretching, and yoga in her room. Pt took a shower and washed clothing. Pt stated that her brother and sister were coming to see her which she was very excited about. Pt is friendly with staff and peers, attends unit activities and ate an average of 75% of meals. She was observed every 15 minutes of shift as directed.
--- NOTE | 2016-07-03 22:49 | NUR ---
Nursing Note [id number] Pt up on milieu upon arrival to unit. Pt affect bright with good eye contact. Pt had family in for visit in the evening and Pt stated it went well. Pt compliant with meds with cooperative and appropriate behavior. Pt attended marlene group and went to room shortly after HS meds. Pt appeared asleep at 2245, Q15 min safety checks per protocol, [facility] sleep, safety, behavior
--- NOTE | 2016-07-04 03:29 | NUR ---
Observations 1900 to 0700 Pt affect remains the same. Pt is confused and disoriented at times. Pt was in and out of her room for most of the night. Pt walked the hallway before gong to her room for the night. Pt first appeared asleep at 21:00 and was observed every 15 minutes through the night as directed.
--- NOTE | 2016-07-04 04:48 | NUR ---
Patient slept well entire shift, 7+ hours. No prns. Family meeting Sunday, possible discharge Sunday.
[2016-07-04 08:35] VITALS: BP 105/67; PULSE 59; RESP 16
--- NOTE | 2016-07-04 13:51 | NUR ---
Nursing Note [id number] Behavior S/O: Pt out of room watching TV & sitting in the window to feel the sun. Good appetite. Pleasant & cooperative. Conversation tracking clear & organized. Pt had a family meeting with Dr. Mendoza, case management, brother, [id number] & sister. (See CM note) Pt stated the meeting was "great....It gave me something to think about. I thought I might go home today, but I'm going home tomorrow." A: Pt anticipating D/C tomorrow with no apparent stress. P: Provide supportive environment. Monitor medications & effects. Plan to D/C tomorrow. Addendum: 07/04/16 at 1429 by MAXIM COSTA RN Correction: Dr. Mendoza isn't following pt. Dr. Herron was not in family meeting.
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
--- NOTE | 2016-07-04 21:19 | NUR ---
Obs Dayshift Pt is polite, engaging, looking forward to DC tomorrow, appreciative and telling staff thank you for their help. Pt is forward thinking, calm, reasonable. Good ADL's, Good meals
--- NOTE | 2016-07-05 02:26 | NUR ---
Observations 1900 to 0700 Pt affect has improved. Pt was in and out of her room for most of the night. Pt walked the hallway before gong to her room for the night. Pt first appeared asleep at 21:45 and was observed every 15 minutes through the night as directed.
--- NOTE | 2016-07-05 10:26 | PCM.DIMED ---
Discharge Instructions Date of Service Jul 05, 2016 Dates of Hospitalization Jun 22, 2016 at 21:07 Discharge Diagnosis Discharge Diagnosis Schizophrenia Paranoid type Diet No restrictions Activity No restrictions Kelechi Herron DO Jul 05, 2016 10:26
[2016-07-05] MEDS ORDERED: OLAN5TAB PO (10:27)
--- NOTE | 2016-07-05 10:55 | PROG NOTE ---
[address] [address] PROGRESS NOTE PATIENT: MARTHA BRAVO : 1950 MR#: [id number] ADMIT: 06/22/2016 JOB ID: [id number] DATE: 07/04/2016 CHIEF COMPLAINT: "I guess I am going to leave tomorrow." This is per patient report. HISTORY OF PRESENT ILLNESS: As stated above, the patient identified that she had a very intensive family meeting but indicated that the plans are to discharge tomorrow. She indicated that she feels that things actually went fairly well in the family meeting and that she is optimistic about the future. OBJECTIVE: On mental status exam, she was bright, cooperative, interactive. Her speech was of normal tone, frequency, and volume. Her mood was neutral. Affect was congruent. Her thought process shows no evidence of racing thoughts, flight of ideas, loose or disconnected thinking. Thought content, she denied any evidence of current suicidal, homicidal ideation. No evidence of active hallucinations, delusions. She was alert, oriented to time, place, situation. Attention, concentration intact. Memory intact in the short term, rn long term care, recent. Insight and judgment are fair. PHYSICAL EXAMINATION: Vital signs are unlisted. MEDICATION REVIEW: Includes Zyprexa 5 mg q.h.s. ASSESSMENT: [place] I Schizophrenia, paranoid type. [place] II Deferred. AX[place] III None. AX[place] IV Stressors are noted for chronic mental health issues, noncompliance of medications. [place] V Global Assessment of Functioning current 40. PLAN: 1. Recommendation is for discharge tomorrow. 2. Continuation of all medications noted.
--- NOTE | 2016-07-05 14:49 | DIS ---
[address] [address] DISCHARGE SUMMARY PATIENT: MARTHA BRAVO : 1950 MR#: [id number] ADMIT: 06/22/2016 JOB ID: [id number] DIS: 07/05/2016 ADMITTING DIAGNOSES: [place] I 1. Schizoaffective disorder, bipolar type. 2. Rule out posttraumatic stress disorder, chronic. AX[place] II Deferred. AXIS III None. AXIS IV Stressors moderate. [place] V Global assessment of functioning of current 25. DISCHARGE DIAGNOSES: [place] I Schizophrenia, paranoid type. AXIS II Deferred. AXIS III None. AXIS IV Stressors are noted for chronic mental health issues, noncompliance of medications. [place] V Global assessment of functioning of current 40. REASON FOR ADMISSION: The patient was a 65-year-old female who reportedly was admitted under detainment with evidence of recent decompensation status grave disability. During the hospital course, the patient was initiated on medications including Zyprexa 5 mg q.h.s. as well as p.r.n. doses of 5 mg b.i.d. Reportedly during the hospital course, the patient had no further titration and rarely used p.r.n. administration. Conversations were held with the family members about the plan and intent to discharge with access of care including return to [place] with utilization of [facility] with an eventual possibility of transitioning to the [facility] with additional care provided by family members. Throughout hospital course, the patient had significant improvement with clearing of her mentation. She was cooperative, polite and openly to engage in alternative treatments. The patient expressed no evidence of significant difficulties with suicidal or homicidal ideation. No evidence of persistent hallucinations or delusions. CONDITION AT TIME OF DISCHARGE: She was bright, cooperative, interactive. She denied any evidence of current suicidal or homicidal ideation. She was alert, oriented to person, place. Time and situation were intact. Insight and judgment were fair. PLANS: 1. Recommendations to discharge to the care of family members with transport back to [place]. 2. Followup with Cyrus Franklin through [facility] in [place], July 06, 2016 at 10 a.m. 3. Followup with ISABEL Elizabeth on July 07 at 10:30 a.m. 4. Followup with Adrianna Phillip on July 06 at 3 o'clock with individual therapist at [facility]. 5. Continuation of Zyprexa 5 mg q.h.s., one month supply, no refills. Reason for usage: Antipsychotic.
--- NOTE | 2016-07-05 15:13 | NUR ---
Patient cooperative with discharge process. Acknowledges understanding of d/c instructions and has a copy with them upon leaving unit at 1211. Pt unhappy about d/c dx on instructions. She denies having schizophrenia & states she has PTSD. Belongings accounted for and with patient. Prescriptions faxed to patients pharmacy. Patient denies harmful thoughts and hallucinations at this time.
== END 2016-07-05 12:11 | disposition home or self-care (01) | DRG 885 ==
LOC: MHC 21:07
PROVIDERS: ADMIT Psychiatry & Neurology Psychiatry; ATTEND Psychiatry & Neurology Psychiatry
DX: F20.0 Paranoid schizophrenia (principal); Z91.14 Patient's other noncompliance with medication regimen